=== PATIENT | male | born 1990 | race Caucasian/White ===

== ENCOUNTER 2018-10-03 03:14 | Emergency (ER) | payer OTHER ==
[2018-10-03 03:24] VITALS: BP 128/76; PULSE 98; TEMP 99.8; BMI 19.2
[2018-10-03] MEDS ORDERED: DEXAMETHASONE LIQUID 0.5 MG/5 ML 240 ML BULK BOTTLE PO ONE (03:29)
[2018-10-03] MEDS ORDERED: ACETAMINOPHEN 500 MG TABLET (FP) PO ONE (03:29)
[2018-10-03] MEDS ORDERED: IBUPROFEN 600 MG TABLET (FP) PO ONE ×3 (03:29→03:39)
[2018-10-03] MEDS ORDERED: DEXAMETHASONE SOD PHOSPHATE 10 MG/1 ML VIAL ONE (03:38)
[2018-10-03] MEDS ORDERED: ACETAMINOPHEN 325 MG TABLET (FP) ONE (03:38)
--- NOTE | 2018-10-03 03:46 | PDOC ---
History of Present Illness - General Chief Complaint: Sore Throat Stated Complaint: SORE THROAT Time Seen by Provider: 10/03/18 03:22 History Source: Patient Exam Limitations: No Limitations - History of Present Illness Initial Comments: 10/03/18 03:46 HISTORY OF PRESENT ILLNESS: 28-year-old male denies medical history presents emergency department for evaluation of sore throat and swollen glands for the past 2 days. Patient reports she has not taken anything for the pain but is progressively worsening. Patient now reports painful swallowing but is able to tolerate his own secretions as well as liquids and foods. He denies any cough, rhinorrhea, nasal congestion, headaches, abdominal pain, nausea or vomiting. No recent travel or sick contacts. PAST MEDICAL HISTORY: Denies past medical history SURGICAL HISTORY: Denies ALLERGIES: No known drug allergies REVIEW OF SYSTEMS General/Constitutional: Denies fever or chills. Denies weakness, weight change. HEENT: see HPI Cardiovascular: Denies chest pain or shortness of breath. Respiratory: Denies cough, wheezing, or hemoptysis. Gastrointestinal: Denies nausea, vomiting, diarrhea or constipation. Denies rectal bleeding. Genitourinary: Denies dysuria, frequency, or change in urination. Musculoskeletal: Denies joint or muscle swelling or pain. Denies neck or back pain. Skin and breasts: Denies rash or easy bruising. Neurologic: Denies headache, vertigo, loss of consciousness, or loss of sensation. Psychiatric: Denies depression or anxiety. Endocrine: Denies increased thirst. Denies abnormal weight change. Hematologic/Lymphatic: Denies anemia, easy bleeding, or history of blood clots. Allergic/Immunologic: Denies hives or skin allergy. Denies latex allergy. PHYSICAL EXAM General Appearance: Well-appearing, appropriately dressed. No apparent distress , no intoxication. HEENT: EOMI, PERRLA, normal ENT inspection, normal voice, TMs normal. Oropharynx erythematous with 2+ tonsils present. No exudate or lesions are present. No conjunctival pallor. No photophobia, scleral icterus. Positive halitosis. Neck: Supple. Trachea midline. No tenderness, rigidity, carotid bruit, stridor , or thyromegaly. Tender anterior cervical lymphadenopathy noted. Respiratory/Chest: Lungs CTAB. No shortness of breath, chest tenderness, respiratory distress, accessory muscle use. No crackles, rales, rhonchi, stridor , wheezing, dullness Cardiovascular: RRR. S1, S2. No JVD, murmur, bradycardia, tachycardia. 10/03/18 19:26 Past History - Past Medical History Allergies/Adverse Reactions: Allergies Allergy/AdvReac Type Severity Reaction Status Date / Time No Known Allergies Allergy Verified 10/03/18 03:21 Home Medications: Ambulatory Orders Amoxicillin - [Amoxicillin 500mg Capsule -] 500 mg PO BID #20 capsule 10/03/18 COPD: No - Immunization History Immunization Up to Date: Yes - Suicide/Smoking/Psychosocial Hx Smoking History: Current every day smoker Number of Cigarettes Smoked Daily: 8 Information on smoking cessation initiated: No Hx Alcohol Use: No Drug/Substance Use Hx: No *Physical Exam - Vital Signs Last Vital Signs Temp Pulse Resp BP Pulse Ox 99.8 F H 98 H 20 128/76 99 10/03/18 03:22 10/03/18 03:22 10/03/18 03:22 10/03/18 03:22 10/03/18 03:22 Medical Decision Making - Medical Decision Making 10/03/18 03:47 A/P: 28-year-old male with sore throat for 2 days Oropharynx erythematous with 2+ tonsils present. No lesions or exudates present Tender anterior cervical lymphadenopathy Patient with clinical strep throat. I will test the patient and will treat regardless of the results of the testing. Patient is in agreement with this plan. I discussed the physical exam findings, ancillary test results and final diagnoses with the patient. I answered all of the patient's questions. The patient was satisfied with the care received and felt comfortable with the discharge plan and treatment plan. The patient will call their primary care physician within 24 hours to arrange follow-up and will return to the Emergency Department with any new, persistent or worsening symptoms. *DC/Admit/Observation/Transfer Diagnosis at time of Disposition: Pharyngitis Qualifiers: Pharyngitis/tonsillitis etiology: unspecified etiology Qualified Code(s): J02.9 - Acute pharyngitis, unspecified - Discharge Dispostion Disposition: HOME Condition at time of disposition: Stable Decision to Admit order: No - Prescriptions Prescriptions: Amoxicillin - [Amoxicillin 500mg Capsule -] 500 mg PO BID #20 capsule - Referrals Referrals: Sun,Womack-Shiuan Shiuan [Primary Care Provider] - - Patient Instructions Additional Instructions: Take amoxicillin as prescribed. Salt water garggles. Throw away your toothbrush in 3 days and start using a new toothbrush. No sharing of drinks, utensils or toothbrushes. Take Motrin as directed by enterprise systems administrator's instructions. Return to ED for worsening fevers, worsening sore throat, chest pain, shortness of breath or any other concerns. - Post Discharge Activity
== END 2018-10-03 03:43 | disposition home or self-care (01) ==
LOC: JER 03:14
DX: J02.9 Acute pharyngitis, unspecified (principal)
CPT/HCPCS: 87070; 87880; 99282-25

== ENCOUNTER 2019-01-09 19:15 | Emergency (ER) | payer OTHER ==
[2019-01-09 19:24] VITALS: BP 114/72; PULSE 61; TEMP 97.6; BMI 18.0
[2019-01-09] MEDS ORDERED: CYCLOBENZAPRINE HCL 10 MG TABLET (FP) PO ONE (19:59)
[2019-01-09] MEDS ORDERED: KETOROLAC TROMETHAMINE 30 MG/1 ML VIAL IM ONE (19:59)
[2019-01-09] MEDS ORDERED: KETOROLAC TROMETHAMINE 30 MG/1 ML VIAL ONE (20:01)
[2019-01-09] MEDS ORDERED: CYCLOBENZAPRINE HCL 10 MG TABLET (FP) ONE (20:01)
--- NOTE | 2019-01-09 20:29 | PDOC ---
History of Present Illness - General Chief Complaint: Back Pain Stated Complaint: lower back pain Time Seen by Provider: 01/09/19 19:32 History Source: Patient Exam Limitations: No Limitations - History of Present Illness Initial Comments: 01/09/19 20:29 Patient is a 28-year-old male with history of asthma, no intubation, occasional use of MDI, here with complaints of right lower rib pain 2 weeks. Patient states he woke up with the pain one morning which is occasionally 7/10 worse with movement to the left, and deep inspiration, or palpation to the area. Patient states no pain currently. He has not taken any medications for the pain , and now pain radiates to the front. Has no associated nausea, vomiting, fever or pain with eating. History of gallbladder disease, or kidney stones. States travelled to [place] 1 week ago but has the prior to travel. Neg Famx h/o DVT/ PE. 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 PMD: Dr. Julien PMHX: as above PSOCHX: neg cig, drug, etoh ALL: NKDA GENERAL/CONSTITUTIONAL: No fever or chills. No weakness. No weight change. HEAD, EYES, EARS, NOSE AND THROAT: No change in vision. No ear pain or discharge. No sore throat. CARDIOVASCULAR: No chest pain or shortness of breath. RESPIRATORY: No cough, wheezing, or hemoptysis. GASTROINTESTINAL: No nausea, vomiting, diarrhea or constipation. No rectal bleeding. GENITOURINARY: No dysuria, frequency, or change in urination. MUSCULOSKELETAL: No joint or muscle swelling or pain. No neck (+) back pain. SKIN AND BREASTS: No rash or easy bruising. NEUROLOGIC: No headache, vertigo, loss of consciousness, or loss of sensation. PSYCHIATRIC: No depression or anxiety. ENDOCRINE: No increased thirst. No abnormal weight change. HEMATOLOGIC/LYMPHATIC: No anemia, easy bleeding, or history of blood clots. ALLERGIC/IMMUNOLOGIC: No hives or skin allergy. No latex allergy. GENERAL: The patient is awake, alert, and fully oriented, in no acute distress. HEAD: Normal with no signs of trauma. EYES: Pupils equal, round and reactive to light, extraocular movements intact, sclera anicteric, conjunctiva clear. ENT: Ears normal, nares patent, oropharynx clear without exudates. Moist mucous membranes. NECK: Normal range of motion, supple without lymphadenopathy, JVD, or masses. LUNGS: Breath sounds equal, clear to auscultation bilaterally. No wheezes, and no crackles. HEART: Regular rate and rhythm, normal S1 and S2 without murmur, rub. ABDOMEN: Soft, (+) tenderness RUQ, normoactive bowel sounds. No guarding, no rebound. No masses , no CVAT BACK: (+) tenderness over the right paraspinal. EXTREMITIES: Normal range of motion, no edema. No clubbing or cyanosis. No cords, erythema, or tenderness. NEUROLOGICAL: Cranial nerves II through XII grossly intact. Normal speech, normal gait. PSYCH: Normal mood, normal affect. SKIN: Warm, Dry, normal turgor, no rashes or lesions noted. Past History - Past Medical History Allergies/Adverse Reactions: Allergies Allergy/AdvReac Type Severity Reaction Status Date / Time No Known Allergies Allergy Verified 10/03/18 03:21 Home Medications: Ambulatory Orders Amoxicillin - [Amoxicillin 500mg Capsule -] 500 mg PO BID #20 capsule 10/03/18 COPD: No - Immunization History Immunization Up to Date: Yes - Suicide/Smoking/Psychosocial Hx Smoking History: Current every day smoker Have you smoked in the past 12 months: Yes Number of Cigarettes Smoked Daily: 10 Information on smoking cessation initiated: No Hx Alcohol Use: No Drug/Substance Use Hx: No *Physical Exam - Vital Signs Last Vital Signs Temp Pulse Resp BP Pulse Ox 97.6 F 61 20 114/72 100 01/09/19 19:21 01/09/19 19:21 01/09/19 19:21 01/09/19 19:21 01/09/19 19:21 Medical Decision Making - Medical Decision Making 01/09/19 20:29 Patient is a 28-year-old male with history of asthma, no intubation, occasional use of MDI, here with complaints of right lower rib pain 2 weeks. Patient states he woke up with the pain one morning which is occasionally 7/10 worse with movement to the left, and deep inspiration, or palpation to the area. Patient states no pain currently. He has not taken any medications for the pain , and now pain radiates to the front. Has no associated nausea, vomiting, fever or pain with eating. History of gallbladder disease, or kidney stones. Symptoms consistent with musculoskeletal pain we'll treat as such with Toradol 50 mg IM and Flexeril 10 mg by mouth. Ultrasound Gallbladder bedside. X-ray ribs right. 01/09/19 20:40 Bedside ultrasound done with resident Nader Delcid. Normal gallbladder noted, slightly attracted (Patient had eaten one hour prior). Normal CBD contracted. 01/09/19 20:57 Xray negative. I discussed the physical exam findings, ancillary test results and final diagnoses with the patient. I answered all of the patient's questions. The patient was satisfied with the care received and felt comfortable with the discharge plan and treatment plan. The Patient agrees to follow up with the primary care physician within 24-72 hours. *DC/Admit/Observation/Transfer Diagnosis at time of Disposition: Back strain Qualifiers: Encounter type: initial encounter Qualified Code(s): S39.012A - Strain of muscle, fascia and tendon of lower back, initial encounter - Discharge Dispostion Disposition: HOME Condition at time of disposition: Stable - Referrals Referrals: Zohreh Julien [Primary Care Provider] - - Patient Instructions Printed Discharge Instructions: DI for Back Strain or Sprain Additional Instructions: Your Discharge Instructions: You must call primary care physician within 24 hours to arrange follow-up. Return to the Emergency Department with any new, persistent or worsening symptoms, for fever, chills, SOB, dizziness or any other concerning changes that may occur. Take Motrin for pain as needed. - Post Discharge Activity
== END 2019-01-09 21:16 | disposition home or self-care (01) ==
LOC: JER 19:15
PROC: 3E0233Z Introduction of Anti-inflammatory into Muscle, Percutaneous Approach (ICD-10-PCS; principal; 2019-01-09)
PROC: BF42ZZZ Ultrasonography of Gallbladder (ICD-10-PCS; 2019-01-09)
DX: S39.012A Strain of muscle, fascia and tendon of lower back, initial encounter (principal); X58.XXXA Exposure to other specified factors, initial encounter; Y93.89 Activity, other specified; Y92.89 Other specified places as the place of occurrence of the external cause; Y99.8 Other external cause status
CPT/HCPCS: 71101-TC-RT-FY; 99281-25